=== PATIENT | male | born 1960 | race Caucasian/White ===

== ENCOUNTER 2018-04-08 18:22 | Observation (INO) | payer OTHER ==
[~2018-04-08] VITALS: Ht 172.7 cm; Wt 103.4 kg
[~2018-04-08 18:22] MED LIST: CARDIZEM; CYCL10 PO; HYDACE10B PO; HYDCOR2.5C PR; LANS30EC PO; NAPR500 PO; OMEP20ER; PROC5 PO; PROP80 PO
[2018-04-08 19:30] LABS: BASOPHILS ABSOLUTE AUTO 0.04 K/mm3 (0.00-0.23); BASOPHILS PERCENT AUTO 0 % (0-2); EOSINOPHILS ABSOLUTE AUTO 0.01 K/mm3 (0.00-0.68); EOSINOPHILS PERCENT AUTO 0 % (0-6); Hematocrit 45.2 % (37.0-53.0); Hemoglobin 15.4 g/dL (13.5-17.5); IMMATURE GRAN ABSOLUTE AUTO 0.06 K/mm3 (0.00-0.10); IMMATURE GRAN PERCENT AUTO 1 % (0-1); LYMPHOCYTES ABSOLUTE AUTO 1.09 K/mm3 (0.84-5.20); LYMPHOCYTES PERCENT AUTO 9 % (21-46); MONOCYTES ABSOLUTE AUTO 0.54 K/mm3 (0.16-1.47); MONOCYTES PERCENT AUTO 4 % (4-13); Mean Corpuscular HGB Conc 34.1 g/dL (31.5-36.5); Mean Corpuscular Volume 91 fL (80-100); Mean Platelet Volume 9.4 fL (9.1-12.4); NEUTROPHILS ABSOLUTE AUTO 10.97 K/mm3 (1.96-9.15); NEUTROPHILS PERCENT AUTO 86 % (41-73); Platelet Count 265 K/mm3 (150-400); RDW Coefficient Variation 11.8 % (11.7-14.2); RDW Standard Deviation 38.7 fL (35.1-46.3); Red Blood Cell Count 4.97 M/mm3 (4.30-5.90); White Blood Cell Count 12.71 K/mm3 (4.00-11.30)
[2018-04-08 19:58] LABS: Troponin I <0.015 ng/mL (0.000-0.040)
[2018-04-08 19:59] LABS: Alanine Aminotransfer (ALT/SGP 54 U/L (12-78); Albumin, Blood 4.6 g/dL (3.4-5.0); Albumin/Globulin Ratio 1.2 (0.8-1.8); Alk Phos 69 U/L (50-136); Anion Gap 11 mmol/L (6-16); Aspartate Aminotrans (AST/SGOT 32 U/L (12-37); Bilirubin, Total 0.6 mg/dL (0.1-1.0); Blood Urea Nitrogen 21 mg/dL (8-24); Bun/Creatinine Ratio 10.6 (12.0-20.0); CO2, Blood 23 mmol/L (21-32); Chloride, Blood 105 mmol/L (98-108); Creatinine, Blood 1.98 mg/dL (0.60-1.20); Globulin, Blood 3.7 g/dL (2.2-4.0); Glomerular Filtration Rate 37 (60-); Glucose, Blood 100 mg/dL (70-99); Potassium, Blood 4.6 mmol/L (3.5-5.5); Sodium, Blood 139 mmol/L (136-145); Total Protein, Blood 8.3 g/dL (6.4-8.2)
[2018-04-08] MEDS ORDERED: Lisinopril2.5 MG (21:31)
[2018-04-09 07:26] LABS: Hematocrit 41.1 % (37.0-53.0); Hemoglobin 13.9 g/dL (13.5-17.5); Mean Corpuscular HGB 31.2 pg (26.0-34.0); Mean Corpuscular HGB Conc 33.8 g/dL (31.5-36.5); Mean Corpuscular Volume 92 fL (80-100); Mean Platelet Volume 9.5 fL (9.1-12.4); Platelet Count 226 K/mm3 (150-400); RDW Coefficient Variation 11.8 % (11.7-14.2); RDW Standard Deviation 39.6 fL (35.1-46.3); Red Blood Cell Count 4.46 M/mm3 (4.30-5.90); White Blood Cell Count 6.05 K/mm3 (4.00-11.30)
[2018-04-09 07:56] LABS: Anion Gap 7 mmol/L (6-16); Blood Urea Nitrogen 28 mg/dL (8-24); Bun/Creatinine Ratio 19.4 (12.0-20.0); CO2, Blood 25 mmol/L (21-32); Calcium, Blood 8.4 mg/dL (8.5-10.1); Chloride, Blood 107 mmol/L (98-108); Creatinine, Blood 1.44 mg/dL (0.60-1.20); Glomerular Filtration Rate 53 (60-); Glucose, Blood 90 mg/dL (70-99); Potassium, Blood 3.9 mmol/L (3.5-5.5); Sodium, Blood 139 mmol/L (136-145); Troponin I <0.015 ng/mL (0.000-0.040)
[2018-04-09] MEDS ORDERED: ASPI81CH PO (18:02)
== END 2018-04-09 18:50 | disposition home or self-care (01) ==
LOC: ER 18:22 → MEDS 18:23
PROVIDERS: Emergency Medicine; Nurse Practitioner Acute Care
DX: I20.9 Angina pectoris, unspecified (principal); N28.9 Disorder of kidney and ureter, unspecified; I10 Essential (primary) hypertension; K21.9 Gastro-esophageal reflux disease without esophagitis; M54.9 Dorsalgia, unspecified; G89.29 Other chronic pain; Z88.0 Allergy status to penicillin; Z88.8 Allergy status to other drugs, medicaments and biological substances; Z79.899 Other long term (current) drug therapy
CPT/HCPCS: 36415; 71046; 76700; 78451; 80048; 80053; 84484; 85025; 85027; 93005; 93010; 93017; 99285-25; A9500; G0378; J7030

== ENCOUNTER 2018-11-21 10:37 | Day surgery (SDC) | payer OTHER ==
[~2018-11-21] VITALS: Ht 205.7 cm; Wt 101.1 kg
[~2018-11-21 10:37] MED LIST changes: +ALEVE220 MG PO; +ASPI81CH PO; +Aspirin EC81 MG PO; +Cyclobenzaprine5 MG PO; +GABA300 PO; +GLUCOSAMINE &1 EACH PO; +Lisinopril2.5 MG; +Nexium40 MG PO; +PROM25 PO; +PROP80ER PO; +SUMA25 PO; +TRAM50 PO
[2018-11-21] MEDS ORDERED: PRAV20 (11:08)
[2018-11-21] MEDS ORDERED: LOSA50 (11:09)
[2018-11-21] MEDS ORDERED: RANI150EL (11:09)
--- NOTE | 2018-11-21 13:13 | NUR ---
11/21/18 1313 Gisele Milligan V 6CC OF NS MIXED WITH INDIGOCARMINE WAS INJECTED INTO POLYP
== END 2018-11-21 13:36 | disposition home or self-care (01) ==
LOC: ORSCSDS 10:37
PROVIDERS: Student in an Organized Health Care Education/Training Program
PROC: 0DBH8ZX Excision of Cecum, Via Natural or Artificial Opening Endoscopic, Diagnostic (ICD-10-PCS; principal; 2018-11-21 12:00)
PROC: 0DBM8ZX Excision of Descending Colon, Via Natural or Artificial Opening Endoscopic, Diagnostic (ICD-10-PCS; principal; 2018-11-21 12:00)
PROC: 0DBK8ZX Excision of Ascending Colon, Via Natural or Artificial Opening Endoscopic, Diagnostic (ICD-10-PCS; principal; 2018-11-21 12:00)
DX: Z12.11 Encounter for screening for malignant neoplasm of colon (principal); D12.4 Benign neoplasm of descending colon; D12.0 Benign neoplasm of cecum; D12.2 Benign neoplasm of ascending colon; I10 Essential (primary) hypertension; G47.33 Obstructive sleep apnea (adult) (pediatric); E66.9 Obesity, unspecified; Z68.32 Body mass index [BMI] 32.0-32.9, adult; Z79.899 Other long term (current) drug therapy; Z79.82 Long term (current) use of aspirin
CPT/HCPCS: 88305; J2405; J7120

== ENCOUNTER 2021-11-02 12:00 | Day surgery (SDC) | payer OTHER ==
[~2021-11-02] VITALS: Ht 175.3 cm; Wt 95.5 kg
[~2021-11-02 12:00] MED LIST changes: +LOSA50 PO; +PRAV20 PO; +RANI150EL
--- NOTE | 2021-11-02 12:49 | NUR ---
Patient confirms NPO status and agrees with scheduled surgery. Pre-Op teaching done. Pt verbalizes understanding. History, Chart, Medications and Allergies reviewed before start of procedure.
--- NOTE | 2021-11-02 18:29 | NUR ---
PT ARRIVED FROM OR AT 1730 VIA BED. A&O X 4, VSS, RA. POD0 R TKA, X1 SURGICAL DRSG IN PLACE, C/D/I. PT REPORTS NUMBNESS TO R LEG, CANNOT YET WIGGLE TOES. PT REPORTS HEADACHE, MANAGED W/ TYLENOL PER EMAR. REPORTS NO PAIN TO R LEG AT THIS TIME. TOLERATING PO WELL. DENIES N/V. WILL REPORT TO ONCOMING RN.
[2021-11-03 04:08] LABS: BASOPHILS ABSOLUTE AUTO 0.02 K/mm3 (0.00-0.23); BASOPHILS PERCENT AUTO 0 % (0-2); EOSINOPHILS ABSOLUTE AUTO 0.04 K/mm3 (0.00-0.68); EOSINOPHILS PERCENT AUTO 1 % (0-6); Hematocrit 36.6 % (37.0-53.0); Hemoglobin 12.2 g/dL (13.5-17.5); IMMATURE GRAN ABSOLUTE AUTO 0.03 K/mm3 (0.00-0.10); IMMATURE GRAN PERCENT AUTO 0 % (0-1); LYMPHOCYTES ABSOLUTE AUTO 0.59 K/mm3 (0.84-5.20); LYMPHOCYTES PERCENT AUTO 7 % (21-46); MONOCYTES ABSOLUTE AUTO 0.55 K/mm3 (0.16-1.47); MONOCYTES PERCENT AUTO 7 % (4-13); Mean Corpuscular HGB 31.7 pg (26.0-34.0); Mean Corpuscular HGB Conc 33.3 g/dL (31.5-36.5); Mean Corpuscular Volume 95 fL (80-100); Mean Platelet Volume 9.6 fL (9.1-12.4); NEUTROPHILS ABSOLUTE AUTO 7.14 K/mm3 (1.96-9.15); NEUTROPHILS PERCENT AUTO 85 % (41-73); Platelet Count 180 K/mm3 (150-400); RDW Coefficient Variation 11.9 % (11.7-14.2); RDW Standard Deviation 41.1 fL (35.1-46.3); Red Blood Cell Count 3.85 M/mm3 (4.30-5.90); White Blood Cell Count 8.37 K/mm3 (4.00-11.30)
[2021-11-03 04:37] LABS: Anion Gap 5 mmol/L (6-16); Blood Urea Nitrogen 23 mg/dL (8-24); Bun/Creatinine Ratio 21.7 (12.0-20.0); CO2, Blood 26 mmol/L (21-32); Calcium, Blood 8.4 mg/dL (8.5-10.1); Chloride, Blood 107 mmol/L (98-108); Creatinine, Blood 1.06 mg/dL (0.60-1.20); Glomerular Filtration Rate >60 (60-); Glucose, Blood 121 mg/dL (70-99); Potassium, Blood 3.9 mmol/L (3.5-5.5); Sodium, Blood 138 mmol/L (136-145)
--- NOTE | 2021-11-03 05:11 | NUR ---
[employer] AGENT SUMMARY PT AAOX4 AND PLEASANT. PT HAS HAD ISSUES WITH PAIN MANAGEMENT AT START OF SHIFT BUT IS NOW BETTER. MEDICATING WITH OXYCODONE, TORADOL, AND TYLENOL FREQUENTLY PER EMAR. PT SPINAL BLOCK WORE OFF AROUND 2100 AND PAIN IN R KNEE SLOWLY INCREASED AFTER THAT UP TO A 10/10 PER PT AT ONE TIME. PAIN MORE TOLERABLE AFTER TORADOL AND 10 MG DOSE OF OXYCODONE, PT ABLE TO SLEEP FOR A FEW HOURS. PT HAS FULL SENSATION OF BLE AND CAN MOVE FEET AND WIGGLE TOES WITH NO ISSUES NOT. SOFT BP SINCE COMING TO HOSPITAL WITH SBP 90'S TO 100'S, HR 40'S TO 50'S. WILL CONTINUE TO MONITOR.
[2021-11-03] MEDS ORDERED: SULTRIDS PO (08:04)
[2021-11-03] MEDS ORDERED: Aspir 8181 MG PO (08:05)
--- NOTE | 2021-11-03 09:52 | NUR ---
DISHCHARGE INSTUCTIONS GIVEN TO PATIENT AT THIS TIME. PATIENT VERBALIZED UNDERSTANDING. POLAR PACK PACKED UP FOR PATIENT. DRESSING TO RIGHT KNEE IS CDI, DRESSING SUPPLIES GIVEN TO PATIENT. NO SIGNS OR SYMPTOMS ACUTE DISTRESS NOTED. AWAITING FOR HIS RIDE TO ARRIVE.
--- NOTE | 2021-11-03 10:25 | NUR ---
Pt. is sitting up and alert. Pt. welcomed my visit. Pt. displayed evidence of loneliness, and needed to talk. Listened empathetically. Pt. is unsettled about being discharged to his sister's home. Normalize the pt. experience. Pt. displays evidence of agreement and understanding. Prayed with pt. Pt. verbalizes gratitude for the visit.
--- NOTE | 2021-11-04 12:07 | NUR ---
11/04/21 1207 Marti Dennis VERIFICATIONS: EDIT CHART.
== END 2021-11-03 10:28 | disposition home or self-care (01) ==
LOC: ORSCMMR 12:00 → SURS 17:31 → ORSCMMR 11-03 10:28
PROVIDERS: Orthopaedic Surgery
PROC: 8E0YXBZ Computer Assisted Procedure of Lower Extremity (ICD-10-PCS; principal; 2021-11-02 14:00)
PROC: 0SRC0J9 Replacement of Right Knee Joint with Synthetic Substitute, Cemented, Open Approach (ICD-10-PCS; principal; 2021-11-02 14:00)
DX: M17.11 Unilateral primary osteoarthritis, right knee (principal); I12.9 Hypertensive chronic kidney disease with stage 1 through stage 4 chronic kidney disease, or unspecified chronic kidney disease; N18.30 Chronic kidney disease, stage 3 unspecified; G47.33 Obstructive sleep apnea (adult) (pediatric); E78.5 Hyperlipidemia, unspecified; Z79.899 Other long term (current) drug therapy; Z79.82 Long term (current) use of aspirin
CPT/HCPCS: 36415; 73560-RT; 80048; 83735; 85025; 97110; 97161; A9270; C1713; C1776; J0171; J0735; J1885; J2250; J2795; J3010; J3370; J7050; J7120

== ENCOUNTER 2025-07-09 06:09 | Day surgery (SDC) | payer OTHER ==
[~2025-07-09] VITALS: Ht 172.7 cm; Wt 109.9 kg
[~2025-07-09 06:09] MED LIST changes: +Aspir 8181 MG PO; +CeFAZolin Sodium 2,000 MG VIAL ONE; +SULTRIDS PO
[2025-07-09] MEDS ORDERED: B-12500 MC2 PO (06:32)
[2025-07-09] MEDS ORDERED: Tranexamic Acid 100 ML IV ONE ×2 (06:34→10:00)
[2025-07-09] MEDS ORDERED: Ropivacaine 0.5% HCL/PF 5 MG/ML 30ML Vial ONE (07:07)
[2025-07-09] MEDS ORDERED: FentaNYL Citrate 50 MCG/ML 2 ML Injection ONE ×2 (07:08→09:00)
[2025-07-09] MEDS ORDERED: Midazolam HCl 1MG / ML 2ML Vial ONE (07:08)
--- NOTE | 2025-07-09 07:17 | NUR ---
07/09/[address] [facility] T/O 0712 O2 3L NC START: 712 END:714
--- NOTE | 2025-07-09 08:00 | NUR ---
07/09/25 0800 Daniel Bryant 1 GM STARTED IN OR, BY DR LANGSTON, AT 0741.
[2025-07-09] MEDS ORDERED: Dexamethasone Sod Phos 10 MG/ML 1ML VIAL ONE (08:54)
[2025-07-09] MEDS ORDERED: Ondansetron HCl 2 MG / ML 2ML Vial ONE (08:54)
[2025-07-09 09:53] VITALS: BP 107/89
== END 2025-07-09 11:15 | disposition home or self-care (01) ==
LOC: ORSCSDS 06:09
PROVIDERS: Orthopaedic Surgery
PROC: 0RRK00Z Replacement of Left Shoulder Joint with Reverse Ball and Socket Synthetic Substitute, Open Approach (ICD-10-PCS; principal; 2025-07-09 07:30)
DX: M19.012 Primary osteoarthritis, left shoulder (principal); I10 Essential (primary) hypertension; G47.33 Obstructive sleep apnea (adult) (pediatric); K21.9 Gastro-esophageal reflux disease without esophagitis; Z79.899 Other long term (current) drug therapy; Z79.82 Long term (current) use of aspirin
CPT/HCPCS: 73030; A9270; C1713; C1776; J0690; J1100; J2250; J2405; J2704; J2795; J3010; J7120